=== PATIENT | male | born 1985 | race Caucasian/White ===

== ENCOUNTER → 2019-01-20 | Outpatient (REF) | payer OTHER ==
[2019-01-20 14:27] LABS: BASO % 0.7 % (0.0-1.0); EOS # 0.2 10^3/uL (0.0-0.50); HEMATOCRIT 46.7 % (42.0-52.0); HEMOGLOBIN 16.1 g/dl (13.5-17.5); LYMPH # 1.8 10^3/uL (1.5-4.5); LYMPH % 30.7 % (24.0-44.0); MEAN CORPUSCULAR HEMOGLOBIN 28.8 pg (27.0-33.0); MEAN CORPUSCULAR HGB CONC 34.5 g/dl (32.0-36.5); MEAN CORPUSCULAR VOLUME 83.5 fl (80.0-96.0); MONO # 0.3 10^3/uL (0.0-0.8); MONO % 5.2 % (0.0-5.0); NEUTROPHILS # 3.4 10^3/uL (1.8-7.7); NEUTROPHILS % 59.2 % (36.0-66.0); PLATELET COUNT, AUTOMATED 255 10^3/uL (150-450); RED BLOOD COUNT 5.59 10^6/uL (4.30-6.10); WHITE BLOOD COUNT 5.8 10^3/uL (4.0-10.0)
[2019-01-20 19:43] LABS: ALBUMIN 4.3 GM/DL (3.2-5.2); ALT/SGPT 48 U/L (12-78); BILIRUBIN,TOTAL 0.3 MG/DL (0.2-1.0); BLOOD UREA NITROGEN 11 MG/DL (7-18); CALCIUM LEVEL 9.2 MG/DL (8.5-10.1); CARBON DIOXIDE LEVEL 27 MEQ/L (21-32); CHLORIDE LEVEL 105 MEQ/L (98-107); CHOLESTEROL LEVEL 226 MG/DL (<200); CHOLESTEROL RISK RATIO 5.794 (<5); CREATININE FOR GFR 1.15 MG/DL (0.70-1.30); FREE T4 0.99 NG/DL (0.76-1.46); GLOMERULAR FILTRATION RATE > 60.0 (>60); GLUCOSE, FASTING 109 MG/DL (70-100); HDL CHOLESTEROL 39 MG/DL (>40); LDL CHOLESTEROL 160 MG/DL (<100); NON-HDL-C 187 MG/DL; POTASSIUM SERUM 4.6 MEQ/L (3.5-5.1); SODIUM LEVEL 139 MEQ/L (136-145); TOTAL PROTEIN 7.2 GM/DL (6.4-8.2); TRIGLYCERIDES LEVEL 136 MG/DL (<150)
[2019-01-20 19:58] LABS: TOTAL 25(OH) VITAMIN D 20.9 NG/ML (30.0-100.0)
== END ==
LOC: M SFHCSACK 09:44
PROVIDERS: ATTEND Physician Assistant
DX: K21.9 Gastro-esophageal reflux disease without esophagitis (principal); Z83.49 Family history of other endocrine, nutritional and metabolic diseases; F41.9 Anxiety disorder, unspecified; Z83.3 Family history of diabetes mellitus; E55.9 Vitamin D deficiency, unspecified

== ENCOUNTER → 2020-04-13 | Outpatient (REF) | payer OTHER ==
[2020-05-23 13:22] LABS: CHLAMYDIA DNA AMPLIFICATION NEGATIVE (NEGATIVE); GC DNA AMPLIFICATION NEGATIVE (NEGATIVE)
== END ==
LOC: M LAB REF 16:22
PROVIDERS: ATTEND Nurse Practitioner Family
DX: R35.0 Frequency of micturition (principal)

== ENCOUNTER → 2022-09-15 | Outpatient (CLI) | payer OTHER ==
[2022-09-15 12:26] LABS: BASO # 0.1 10^3/uL (0.0-0.2); EOS # 0.2 10^3/uL (0.0-0.5); EOS % 2.8 % (0.0-3.0); HEMATOCRIT 48.4 % (42.0-52.0); HEMOGLOBIN 16.4 g/dl (13.5-17.5); LYMPH # 1.9 10^3/uL (1.5-5.0); LYMPH % 30.5 % (24.0-44.0); MEAN CORPUSCULAR HEMOGLOBIN 29.9 pg (27.0-33.0); MEAN CORPUSCULAR HGB CONC 33.9 g/dl (32.0-36.5); MEAN CORPUSCULAR VOLUME 88.2 fl (80.0-96.0); MONO # 0.4 10^3/uL (0.0-0.8); MONO % 6.1 % (2.0-8.0); NEUTROPHILS # 3.6 10^3/uL (1.5-8.5); NEUTROPHILS % 59.3 % (36.0-66.0); PLATELET COUNT, AUTOMATED 271 10^3/uL (150-450); RED BLOOD COUNT 5.49 10^6/uL (4.30-6.10); WHITE BLOOD COUNT 6.1 10^3/uL (4.0-10.0)
[2022-09-15 12:56] LABS: ALBUMIN 4.2 G/DL (3.2-5.2); ALKALINE PHOSPHATASE 77 U/L (46-116); ALT/SGPT 35 U/L (7.0-40); AST/SGOT 23 U/L (<34); BILIRUBIN,TOTAL 0.5 MG/DL (0.3-1.2); BLOOD UREA NITROGEN 16 MG/DL (9-23); CALCIUM LEVEL 9.3 MG/DL (8.5-10.1); CARBON DIOXIDE LEVEL 29 MMOL/L (20-31); CHLORIDE LEVEL 103 MMOL/L (98-107); CHOLESTEROL LEVEL 237 MG/DL (<200); CREATININE FOR GFR 1.14 MG/DL (0.70-1.30); GLOMERULAR FILTRATION RATE > 60.0 (>60); GLUCOSE, FASTING 95 MG/DL (60-100); HDL CHOLESTEROL 37.6 MG/DL (>40); LDL CHOLESTEROL 161.8 MG/DL (<100); NON-HDL-C 199 MG/DL; POTASSIUM SERUM 4.2 MMOL/L (3.5-5.1); SODIUM LEVEL 139 MMOL/L (136-145); TOTAL PROTEIN 7.3 G/DL (5.7-8.2); TRIGLYCERIDES LEVEL 188 MG/DL (<150)
[2022-09-15 12:57] LABS: TOTAL 25(OH) VITAMIN D 20.6 NG/ML (20.0-100.0)
[2022-09-15 12:58] LABS: THYROID STIMULATING HORMONE 2.079 uIU/ML (0.55-4.78)
[2022-09-15 13:38] LABS: HEMOGLOBIN A1c 4.6 % (4.0-6.0)
== END ==
LOC: M WUC 09:53
PROVIDERS: ATTEND Physician Assistant
DX: E78.2 Mixed hyperlipidemia (principal); E55.9 Vitamin D deficiency, unspecified; F41.9 Anxiety disorder, unspecified; Z13.1 Encounter for screening for diabetes mellitus

== ENCOUNTER → 2023-11-22 | Outpatient (CLI) | payer OTHER | LOC: M RAD 18:01 | PROVIDERS: ATTEND Physician Assistant | DX: R07.9 Chest pain, unspecified (principal); M54.59 Other low back pain ==

== ENCOUNTER 2023-11-26 23:41 | Emergency (ER) | payer OTHER ==
[2023-11-26] MEDS ORDERED: NALOXONE INJ 0.4MG/1ML VIAL ONE (23:42)
[2023-11-26] MEDS ORDERED: SODIUM BICARBONATE 8.4% INJ 50ML SYRINGE ONE (23:42)
[2023-11-26] MEDS ORDERED: EPINEPHrine 1MG/10ML SYRINGE 1.5IN ONE (23:42)
[2023-11-26 23:56] VITALS: O2SAT 75
== END 2023-11-27 02:10 | disposition expired ==
LOC: M ED 23:41 → EDBD 23:41 → M ED 11-27 02:10
DX: I46.9 Cardiac arrest, cause unspecified (principal); K21.9 Gastro-esophageal reflux disease without esophagitis; F41.9 Anxiety disorder, unspecified
CPT/HCPCS: 92950; 99285; J0171; J2310